=== PATIENT | male | born 1990 | race Caucasian/White ===

== ENCOUNTER → 2018-11-10 | Outpatient (CLI) | payer OTHER ==
[~2018-11-10] MED LIST: MOTRIN600 MG PO
== END | disposition home or self-care (01) ==
LOC: CT 15:58
DX: R10.11 Right upper quadrant pain (principal); R10.30 Lower abdominal pain, unspecified

== ENCOUNTER → 2020-05-27 | Outpatient (CLI) | payer OTHER | END | disposition home or self-care (01) | LOC: COVID19 10:13 | PROVIDERS: ATTEND Family Medicine | DX: Z20.828 Contact with and (suspected) exposure to other viral communicable diseases (principal) ==

== ENCOUNTER 2024-09-27 16:23 | Emergency (ER) | payer SELFPAY ==
[~2024-09-27] VITALS: Wt 86.2 kg
[2024-09-27] MEDS ORDERED: SEPTDS PO (17:18)
[2024-09-27] MEDS ORDERED: Tdap Vaccine 0.5 ML SYR (Adult Vaccine) IM ONE (17:20)
== END 2024-09-27 17:44 | disposition home or self-care (01) ==
LOC: ED 16:23
DX: L03.011 Cellulitis of right finger (principal)

== ENCOUNTER 2025-06-08 11:15 | Emergency (ER) | payer SELFPAY ==
[~2025-06-08] VITALS: Ht 180.3 cm; Wt 81.6 kg
[~2025-06-08 11:15] MED LIST changes: +SEPTDS PO
[2025-06-08] MEDS ORDERED: Acetaminophen/Oxycodone 5 MG/325 MG TABLET PO ONE (11:35)
[2025-06-08] MEDS ORDERED: PREDNISONE20 M1 PO (12:57)
== END 2025-06-08 13:07 | disposition home or self-care (01) ==
LOC: ED 11:15
DX: M51.369 Other intervertebral disc degeneration, lumbar region without mention of lumbar back pain or lower extremity pain (principal)